=== PATIENT | female | born 1985 | race Hispanic/Latino ===

== ENCOUNTER 2016-08-13 23:57 | Inpatient (IN) | payer OTHER ==
[~2016-08-13] VITALS: Ht 152.4 cm; Wt 73.0 kg
[~2016-08-13 23:57] MED LIST: PREN1TAB47 PO
[2016-08-14] MEDS ORDERED: Lactated Ringer's 1,000 ML IV PRN (02:52)
[2016-08-14] MEDS ORDERED: Hemorrhage Kit, Post Partum XX ONE ×2 (02:55→07:25)
[2016-08-14] MEDS ORDERED: Carboprost 250 mCg/mL Inj IM PRN ×2 (02:55→07:25)
[2016-08-14] MEDS ORDERED: Oxytocin 10 Unit/mL Inj IM PRN ×2 (02:55→07:25)
[2016-08-14] MEDS ORDERED: fentaNYL-PF 50 mCg/mL 2 mL Inj IVPUSH PRN (02:55)
[2016-08-14] MEDS ORDERED: Methylergonovine 0.2 mg/mL Inj IM PRN ×2 (02:55→07:25)
[2016-08-14] MEDS ORDERED: Oxytocin 30 Units/500 mL LR 30 UNITS in IV Premix 1 EACH IV PRN ×2 (02:55→07:25)
[2016-08-14] MEDS ORDERED: Ondansetron 2 mg/mL 2 mL Inj IVPUSH PRN ×2 (02:55→04:25)
[2016-08-14] MEDS ORDERED: Sodium Chloride LOK Flush 10 mL Syringe IVFLUSH PRN (02:55)
[2016-08-14 03:35] LABS: Mean Corpuscular Hemoglobin 24.6 pg (27.0-35.0); Mean Corpuscular Volume 79.4 fL (81-100)
[2016-08-14] MEDS ORDERED: Lactated Ringer's 1,000 ML IV SCH ×2 (04:25→07:23)
[2016-08-14] MEDS ORDERED: Atropine 1 mg/10 mL (Code) Syringe IVPUSH PRN (04:25)
[2016-08-14] MEDS ORDERED: EPHEDrine Sulfate 50 mg/mL Inj IVPUSH PRN (04:25)
[2016-08-14] MEDS ORDERED: Lactated Ringer's 500 ML IV ONE (04:25)
[2016-08-14] MEDS ORDERED: fentaNYL 2 mCg/mL-Bupiv 0.125% 100 ML EPIDURAL SCH (04:25)
--- NOTE | 2016-08-14 04:28 | PCM.HPANE ---
Patient Data Surgeon Admitting Provider:Darline Couch MD Attending Provider:Darline Couch MD Primary Care Physician:Kristen Samuel MD Other Provider:[facility] Reason for Visit Active Labor ACTIVE LABOR Ht/WT & BMI Body Mass Index Allergies Coded Allergies: No Known Allergies (Unverified Allergy, Unknown, 01/25/16) Past Anesthesia History Anesthesia History: Denies:: Abnormal Airway, Difficult Intubation Diabetes History Hx Diabetes?: No MRSA MRSA: No Medications Hypertension Medication: No Home Meds Incl Beta Ernesto: No Reported Medications Vit/Fe Fumarate/Fa-Expunged Drug, Do (-Expunged Drug, Do Not Renew!)1 Tab Tablet1 Tab PO DAILY 03/13/12 History HEENT History: Denies:: Abnormal Airway Difficult Intubation Hx of Heart Problems?: No Hx of Respiratory Problem?: No Hx Neurologic Problems?: No Hx of GI Problems?: No Hx of Problems?: No Female Hx: Positive for:: Currently Hx Musculoskeletal Problems?: No Hx of Psycho/Social Problems?: No Smoking Status: Never Smoker Stop/Bang Treated for Sleep Apnea?: No Do You Have a CPAP Machine?: No Risk Assessment Category Category 1A: Patient has history of documented sleep apnea, and HAS NOT received any narcotic, sedative or anesthesia administration during this stay. Category 1B: Patient has history of documented sleep apnea, and HAS received any narcotic , sedative or anesthesia administration during this stay Category 2: Patient has SUSPECTED Obstructive Sleep Apnea, and HAS received any narcotic , sedative or anesthesia administration during this stay. Category 3: Patient has SUSPECTED Obstructive Sleep Apnea and HAS NOT received narcotic, sedative or anesthesia administration during this stay. Category 4: Outpatient in Procedural Areas with known sleep apnea or who screen positive for High Risk via the STOP/BANG questionnaire. Meds/Labs/Diagnostics Labs Test 08/14/16 03:15 White Blood Count 12.2th/mm3 (3.8-10.1) Red Blood Count 4.71mil/mm3 (3.90-5.20) Hemoglobin 11.6g/dL (12.0-15.6) Hematocrit 37.4% (35.0-46.0) Mean Corpuscular Volume 79.4fL (81-100) Mean Corpuscular Hemoglobin 24.6pg (27.0-35.0) Mean Corpuscular Hemoglobin Concent 31.0% (32.0-37.0) Red Cell Distribution Width 14.9% (12.3-15.4) Platelet Count 248bil/L (150-400) Plan Impression Patient chart reviewed, patient interviewed and anesthestic plan with risks, benefits, and alternatives discussed, and informed consent obtained. ASA Physical Status: ASA1 Normal Healthy Anesthetic Plan: Epidural Bene/Risks/Altern/Consents: Yes HP Complete Prior to Induction: Yes Tiago Lopez MD Aug 14, 2016 04:28
[2016-08-14] MEDS ORDERED: Witch Hazel-Glycerin Pads TOPICAL PRN (07:25)
[2016-08-14] MEDS ORDERED: HYDROcodone-APAP 5-325 mg Tablet PO PRN (07:25)
[2016-08-14] MEDS ORDERED: Benzocaine (Dermoplast) 20% 60 Gm Spray TOPICAL PRN (07:25)
[2016-08-14] MEDS ORDERED: LANOlin HPA 7 Gm Ointment TOPICAL PRN (07:25)
--- NOTE | 2016-08-14 07:50 | PCM.HPOB ---
Subjective Date of Service: Aug 14, 2016 Referring Provider: Admitting Physician: Darline Couch MD Primary Care Physician: Kristen Samuel MD Attending Physician: Darline Couch MD Chief Complaint active labor at term History of Present History of Present Illness 31 yr old, at 40 wk gestational age by LMP and by 10 wk u/s, [facility]. Her care at [facility] with Dr. Samuel was uncomplicated. She is GBS neg; she had epidural placed for pain control after admission. Membranes were ruptured ~5 AM today, produced clear fluid, and she was 8 cm dilated. Dilation was complete by 6 AM, labored down for 1 hr, had a few effective pushes and delivered a vigorous baby boy at 7:07 AM. Both the mother and the remained in stable conditions after the delivery. OB History: (2), Para (1), Term (1), Pre-term (0), ( 0), Living (1) Obstetrical Complications: None Past Medical History Obstetrical History: Normal vaginal delivery at term 4 yrs ago Hx Tobacco Use: No Hx Alcohol Use: No Hx Substance Use: No Past Family History Living Arrangement: with Family Genetic Screening/Counseling Genetic Screening/Counseling: Negative Review of Systems ROS No complains other than labor symptoms Constitutional: Y: Other, Change of appitite, Chills, Dizziness, Fever, Malaise , Pain, Sweats, Weakness, Weight loss Eyes: Denies: Blurred Vision, Conjunctive Inflammation, Double Vision, Eyelid Inflammation, Other, Pain, Redness, Vision Changes ENT: Denies: Dental Problems, Dysphagia, Ear Discharge, Ear Pain, Hoarseness, Membranes Dry, Nasal Congestion, Nose Discharge, Nose Pain, Other, Throat Pain, Tinnitus, Ulcers/Sores in Mouth Cardiovascular: Denies: Chest Pain, Edema, Orthopnea, Other, Palpitations, SOB while laying flat Respiratory: Denies: Cough, Cough with bloody sputum, Other, Pleuritic Chest Pain, Pleuritic Chest Pain, SOB with Exertion, Sputum, Wheezing Gastrointestinal: Denies: Abdominal Pain, Black tarry stools, Blood in stool ( red), Change in Appetite, Constipation, Diarrhea, Epigastric pain, Heartburn, Nausea, Other, Use of Laxatives, Vomiting Genitourinary: Denies: Anuria, Change in Frequency, Dysuria, Hematuria, Incontinence, Nocturia, Other, Retention Musculoskeletal: Denies: Back Pain, Deformity, Limitation of Function, Neck Pain, Other, Redness, Shoulder Pain, Swelling Skin/Breasts: Denies: Bruising, Discharge, Dry or Flakiness, Jaundice, Lesions , Masses, Mastalgia, Other, Rash, Scars, Ulcers Skin: Denies: Bruising, Dry or Flakiness, Jaundice, Lesions, Other, Rash, Scars , Ulcers Neurological: Denies: Change in Speech, Confusion, Dizziness, Incoordination, Numbness, Other, Seizures, Somnolence, Tremors, Weakness Psychologic: Denies: Agitation, Anxious, Apprehensive, Depression, Insomnia, Instability, Nervousness, Other Endocrine: Denies: Blood Glucose Review, Change in Appitite, Diaphoresis, Excessive Thirst, Intolerent to Heat/Cold, Other, Recent A1C, Urinating frequently Hematologic: Denies: Abnormal bleeding, Adenopathy, Bruising, Other Allergy Coded Allergies: No Known Allergies (Unverified Allergy, Unknown, 01/25/16) Exam Constitutional: Well-developed Abdomen: Gravid Lymphatic: Normal: Axilla Palpation of Nodes, Groin Palpation of Nodes, Neck Palpation of Nodes Extremities: Warm, No Edema Neurological/Psychiatric: Alert, Oriented X3, Cooperative, No Acute Distress Neuro: Grossly Neurologically Intact Labs/Diagnostics Maternal Blood Type: O Hx Rho(D) Immune Globulin: No Group B Strep Results: Negative OB Intrapartum Assessment/Plan Assessment Normal vaginal delivery term; routine care. Pain Evaluation: Adequate Pain Control Post plan: Continue routine post care Darline Couch MD Aug 14, 2016 07:50
--- NOTE | 2016-08-14 08:02 | PCM.OBVAG ---
Vaginal Delivery Date of Service Aug 14, 2016 Pre Operative Diagnosis Pre Operative Diagnosis active labor at term; GBS negative. Post Operative Diagnosis Post Operative Diagnosis Normal vaginal delivery at term Procedure Procedure: She labored down for 1 hr after dilation was complete around 6 AM; she had a few effective pushes and delivered a vigorous baby boy at 7:07 AM. Head position : TANJA; the cried vigorously soon after , and was placed to mother' s chest immediately; the cord was clamped 2 min after ; the placenta was delivered intact, with a 3-vessel cord. Estimated blood loss~350 ml; : 9/ 9. Very mild midline perineal tear required no suturing. [place]/sharps were disposed appropriately, sponge count was correct. Both the mother and the new born remained in stable condition after the delivery. Obstetical Procedure: Normal Spontaneous Vaginal Delivery Dining Services Director/Currency Exchange Specialist Provider and Currency Exchange Specialist: Dr. Couch Indication for Procedure Induction: Active labor Findings Obstetrical Findings: Flora (Male), 1 minute (9), 5 minutes (9) Analgesia/Medications Obstetrical Anesthesia: Epidural Blood Loss & Administration Estimated Blood Loss: 350 Blood Admin during procedure: No Post Procedure Plan Post delivery Condition: Mom stable, Baby stable to nursery Attending Statement normal vaginal delivery at term Darline Couch MD Aug 14, 2016 08:02
[2016-08-14] MEDS ORDERED: Sodium Chloride LOK Flush 10 mL Syringe IVFLUSH SCH (08:30)
--- NOTE | 2016-08-14 11:46 | PCM.ANEP1 ---
Post Anesthesia Phase 1 PACU Phase 1 Assessment Date of Service: Aug 14, 2016 Vital Signs See OB documentation Anesthetic Administered: Epidural Level of Alertness: Awake, talking RIVERA's with Equal Strength: Yes Pain: No Nausea or Vomiting: No Oxygen Delivery: Room Air Lungs: Normal Air Movement Dermatome Level: Full Sensation Sudheer Yee MD Aug 14, 2016 11:46
--- NOTE | 2016-08-14 11:47 | PCM.ANEP2 ---
Post Anesthesia Evaluation ASA/CMS Post Anesthesia Date of Service: Aug 14, 2016 VS in Patient's Normal Range?: Yes Resp Stable; Airway Patent?: Yes CV Function & Hydration Stable: Yes Mental Status Recovered?: Yes Pain control Satisfactory?: Yes N/V Control Satisfactory?: Yes Sudheer Yee MD Aug 14, 2016 11:47
[2016-08-15 07:22] LABS: Mean Corpuscular Hemoglobin 25.6 pg (27.0-35.0); Mean Corpuscular Volume 81.4 fL (81-100)
--- NOTE | 2016-08-15 09:06 | PCM.DIOB ---
Obstetrical Disch Instruction Date of Service: Aug 15, 2016 Dates of Hospitalization Date of Hospital Admission Aug 14, 2016 at 02:50 Providers Admitting Physician: Darline Couch MD Primary Care Physician: Kristen Samuel MD Attending Physician: Darline Couch MD Discharge Diagnosis Problems: (1) Normal delivery Status: Acute ICD Code: O80 (2) Anemia Qualifiers: Other causes of anemia: acute posthemorrhagic Status: Acute ICD Code: D64.9 Diet Discharge Diet: No restrictions Activity Discharge Activity-General: Pelvic Rest for 6 weeks, Be up and about, Balance rest and activity Dressing and Incisional Care Hygiene: May shower, Perineal care, Sitz bath, Dermoplast spray, Witch Didi pads, Ice Additional Instructions Discharge Instructions Ibuprofen, PNVs, DSS and iron prescriptions have been faxed to pt's pharmacy ( [facility]) by provider through [facility] outpatient electronic medical record Follow Up Plan Follow-up Provider (F9): Kristen Samuel MD Follow-up appointment: Weeks (6) Call your provider for: Fever or Chills, Shortness of breath, Heavy vaginal bleeding, Epigastric pain, Excessive constipation, Vaginal discomfort, Red painful breasts (swollen, painful leg) Ishmael Layne MD Aug 15, 2016 09:06
[2016-08-15 09:59] VITALS: BP 112/73; PULSE 69; RESP 17
--- NOTE | 2016-08-18 06:35 | DIS ---
[address] [address] DISCHARGE SUMMARY PATIENT: JUAN MIGUEL LAND : 1985 MR#: [id number] ADMIT: 08/14/2016 JOB ID: [id number] DIS: 08/15/2016 ADMIT DATE: 08/14/2016 DISCHARGE DATE: 08/15/2016 ADMIT DIAGNOSES: Multip, term, active labor. DISCHARGE DIAGNOSES: 1. 2, now para 2, status post normal spontaneous vaginal delivery, without complications. 2. Anemia, post delivery. CONSULTATIONS DURING HOSPITALIZATION: Anesthesiology. HOSPITAL COURSE: For details of admission, please see history and physical. Please see vaginal delivery summary by Dr. Couch. The patient had uncomplicated delivery. Post delivery, she did well, good p.o. intake, ambulating without dizziness. Normal bowel and bladder function. Normal vaginal bleeding. Pain well controlled. PHYSICAL EXAMINATION: Vital signs were stable. On day of discharge, she was afebrile. She is in no acute distress. Pleasant, cooperative. Breast-feeding well without discomfort. Cardiovascular: Regular rate rhythm. S1-S2. No murmurs, gallops, rubs. Lungs: Clear to auscultation. No crackles, rhonchi or wheezes. Her abdomen is soft, nontender. Uterus is to the left of midline, soft, only firms moderately with massage by provider. Lower extremities without edema, nontender. LABORATORIES: Show significant for hematocrit 28.9, white count 12.8 (stable from when in labor). Platelets 190. DISCHARGE INSTRUCTIONS: The patient is discharged home. She will follow up with the [facility], Dr. Samuel, in six weeks, sooner p.r.n. DISCHARGE MEDICATIONS: Including iron, ibuprofen, vitamins and docusate are all faxed to the patient's outpatient pharmacy. Reviewed with the patient signs and symptoms of common and concerning peripartum complications and how to access care if those occur. JONATHAN
== END 2016-08-15 13:30 | disposition home or self-care (01) | DRG 560 ==
LOC: FBCO 23:57 → FBC 08-14 02:50
PROVIDERS: ADMIT Family Medicine; ATTEND Family Medicine
PROC: 10E0XZZ Delivery of Products of Conception, External Approach (ICD-10-PCS; principal; 2016-08-14)
DX: O90.81 Anemia of the puerperium (principal); Z37.0 Single live birth; Z3A.40 40 weeks gestation of pregnancy